=== PATIENT | female | born 1945 | race Caucasian/White ===

== ENCOUNTER 2016-11-20 15:04 | Inpatient (IN) | payer MEDICARE, OTHER ==
[~2016-11-20 15:04] MED LIST: ADULT LOW DOSE81 M1 PO; ATIVAN1 M2 PO; CALCIUM 600-VI1 EACH PO; CLARITIN10 M8 PO; COLACE100 M1 PO; COZAAR100 M1 PO; FISH OIL 1,0001 EAC6 PO; FLUPHENAZI IM; FUROSEMIDE20 M1 PO; GLUCOSAMINE HC500 M1 PO; GLUCOTROL XL10 M1 PO; KLOR-CON 1010 ME1 PO; LIPITOR40 M1 PO; LOVASTATIN40 M2 PO; NADOLOL20 M1 PO; NORCO 5-325 TA1 EACH PO; NORCO 7.5-3251 EACH PO; PROAIR HFA8.5 GM INH; SPIRIVA18 MC1 IH; SYMBICORT 160-1 PUFF INH; TYLENOL EXTRA500 M1 PO; VITAMIN D31000 UNI3 PO; ZANTAC 7575 M1 PO; ZOLOFT100 M1 PO
[2016-11-20 21:22] LABS: INR 1.2 INR (0.9-1.1); PROTHROMBIN TIME 13.7 SECONDS (9.0-13.6)
[2016-11-20 21:24] LABS: PARTIAL THROMBOPLASTIN TIME 29 SECONDS (22-38)
[2016-11-20 21:58] LABS: HCT-HEMATOCRIT 28.2 % (34.0-49.0); IMMATURE GRANULOCYTES ABSOLUTE 0.02 tho/cmm (0-0.03); IMMATURE GRANULOCYTES PERCENT 0.3 % (0-0.3); LYMPH ABSOLUTE COUNT 0.2 tho/cmm (0.8-4.5); MCH (MEAN CORPUSCULAR HGB) 29.3 pg (28.0-32.0); MCHC MEAN CORPUSCULAR HGB CONC 31.9 % (32.0-36.0); MCV (MEAN CELL VOLUME) 91.9 fl (82.0-96.0); MEAN PLATELET VOLUME 10.3 cmc (9.4-12.4); MONO % 1.8 % (0-12); MONOCYTE ABSOLUTE COUNT 0.1 tho/cmm (0.0-1.2); NEUTROPHIL ABSOLUTE COUNT 7.2 tho/cmm (1.6-8.0); NEUTROPHIL-AUTOMATED 7.2 tho/cmm (1.6-8.0); NEUTROPHILS % 94.9 % (40-80); PLATELET COUNT 164 tho/cmm (150-450); RED BLOOD COUNT 3.07 mil/cmm (4.00-5.20); WHITE BLOOD COUNT 7.6 tho/cmm (4.0-10.0)
[2016-11-20 22:11] LABS: ALB/GLOB RATIO 0.8 (0.8-2.0); ALBUMIN 2.7 g/dl (3.5-5.0); ALKALINE PHOSPHATASE 68 U/L (33-138); ALT/SGPT 285 U/L (12-78); ANION GAP 16 mmol/L (0-20); AST/SGOT 547 U/L (10-40); BLOOD UREA NITROGEN 24 mg/dl (6-24); CALCIUM 7.7 mg/dl (8.5-10.5); CARBON DIOXIDE-VENOUS 19 mmol/L (22-32); CHLORIDE 107 mmol/l (96-110); CHOLESTEROL 152 mg/dl (120-200); CREATININE 0.69 mg/dl (0.50-1.10); GLUCOSE 207 mg/dL (70-110); HDL CHOLESTEROL 42 mg/dl (40-60); LDL CHOLESTEROL 86 mg/dl (0-99); POTASSIUM 4.2 mmol/L (3.7-5.1); SODIUM 138 mmol/L (135-145); TRIGLYCERIDES 122 mg/dl (<149); VLDL 24 mg/dl (0-30); eGFR VALUE FOR BLACK >90 mL/Min
[2016-11-20 22:19] LABS: CKMB 17.2 ng/ml (<3.6)
[2016-11-20 22:24] LABS: CREATINE PHOSPHOKINASE (CPK) 1608 U/L (21-215)
[2016-11-20 22:50] LABS: ABG CO2 ARTERIAL 19 mmol/L (21-27); ARTERIAL BLD GAS O2 SATURATION 99 % (95-98); ARTERIAL BLOOD GAS PCO2 29 mmHg (32-45); ARTERIAL PO2 157 mmHg (70-100); BICARBONATE 19 mmol/L (21-28); BLOOD GAS BASE EXCESS -5 mM/L (-/+3); PH 7.42 Units (7.35-7.45)
[2016-11-21 00:41] LABS: URINE BILIRUBIN NEGATIVE (NEG); URINE BLOOD MODERATE (NEG); URINE GLUCOSE (UA) NEGATIVE (NEG); URINE KETONE NEGATIVE (NEG); URINE LEUKOCYTE ESTERASE NEGATIVE (NEG); URINE NITRITE NEGATIVE (NEG); URINE PROTEIN MODERATE (NEG)
[2016-11-21 00:45] LABS: URINE APPEARANCE HAZY; URINE COLOR YELLOW
[2016-11-21 00:52] LABS: URINE AMORPHOUS 2+; URINE MUCUS 1+
[2016-11-21 00:56] LABS: URINE EPITHELIAL CELLS 0-1 /[HPF] (0-10); URINE OTHER VOLUME 4 ML
[2016-11-21 04:19] LABS: HCT-HEMATOCRIT 26.9 % (34.0-49.0); HGB-HEMOGLOBIN 8.5 gm/dl (12.0-15.5); IMMATURE GRANULOCYTES ABSOLUTE 0.04 tho/cmm (0-0.03); IMMATURE GRANULOCYTES PERCENT 0.6 % (0-0.3); LYMPH % 5.6 % (20-45); LYMPH ABSOLUTE COUNT 0.4 tho/cmm (0.8-4.5); MCH (MEAN CORPUSCULAR HGB) 28.8 pg (28.0-32.0); MCHC MEAN CORPUSCULAR HGB CONC 31.6 % (32.0-36.0); MCV (MEAN CELL VOLUME) 91.2 fl (82.0-96.0); MEAN PLATELET VOLUME 10.5 cmc (9.4-12.4); MONOCYTE ABSOLUTE COUNT 0.2 tho/cmm (0.0-1.2); NEUTROPHIL ABSOLUTE COUNT 6.6 tho/cmm (1.6-8.0); NEUTROPHIL-AUTOMATED 6.6 tho/cmm (1.6-8.0); NEUTROPHILS % 90.8 % (40-80); PLATELET COUNT 172 tho/cmm (150-450); RED BLOOD COUNT 2.95 mil/cmm (4.00-5.20); RED CELL DISTRIBUTION WIDTH 15.2 % (12.4-16.4); WHITE BLOOD COUNT 7.3 tho/cmm (4.0-10.0)
[2016-11-21 04:31] LABS: ALB/GLOB RATIO 0.8 (0.8-2.0); ALBUMIN 2.6 g/dl (3.5-5.0); ALKALINE PHOSPHATASE 65 U/L (33-138); ALT/SGPT 300 U/L (12-78); ANION GAP 13 mmol/L (0-20); AST/SGOT 513 U/L (10-40); BILIRUBIN,TOTAL 0.9 mg/dl (0-1.5); BLOOD UREA NITROGEN 26 mg/dl (6-24); CALCIUM 7.7 mg/dl (8.5-10.5); CARBON DIOXIDE-VENOUS 21 mmol/L (22-32); CHLORIDE 108 mmol/l (96-110); CREATININE 0.68 mg/dl (0.50-1.10); GLUCOSE 135 mg/dL (70-110); MAGNESIUM 2.1 mg/dl (1.3-2.6); SODIUM 138 mmol/L (135-145); eGFR VALUE FOR BLACK >90 mL/Min
[2016-11-21 04:41] LABS: CKMB 12.6 ng/ml (<3.6)
[2016-11-21 04:47] LABS: CREATINE PHOSPHOKINASE (CPK) 1301 U/L (21-215)
[2016-11-21 04:53] LABS: ABG CO2 ARTERIAL 19 mmol/L (21-27); ARTERIAL BLD GAS O2 SATURATION 99 % (95-98); ARTERIAL BLOOD GAS PCO2 27 mmHg (32-45); ARTERIAL PO2 151 mmHg (70-100); BICARBONATE 18 mmol/L (21-28); BLOOD GAS BASE EXCESS -5 mM/L (-/+3); PH 7.45 Units (7.35-7.45)
[2016-11-21] MEDS ORDERED: AMBIEN5 M1 PO (11:56)
[2016-11-21 12:34] LABS: TSH-THYROID STIMULATING HORM. 3.53 uIU/ml (0.40-3.80)
[2016-11-21 20:05] LABS: CREATINE PHOSPHOKINASE (CPK) 812 U/L (21-215)
[2016-11-21 20:08] LABS: CKMB 7.1 ng/ml (<3.6)
[2016-11-22 04:40] LABS: BASO % 0.1 % (0-2); HCT-HEMATOCRIT 27.6 % (34.0-49.0); HGB-HEMOGLOBIN 8.8 gm/dl (12.0-15.5); IMMATURE GRANULOCYTES ABSOLUTE 0.02 tho/cmm (0-0.03); IMMATURE GRANULOCYTES PERCENT 0.2 % (0-0.3); LYMPH % 4.4 % (20-45); LYMPH ABSOLUTE COUNT 0.4 tho/cmm (0.8-4.5); MCHC MEAN CORPUSCULAR HGB CONC 31.9 % (32.0-36.0); MCV (MEAN CELL VOLUME) 91.1 fl (82.0-96.0); MEAN PLATELET VOLUME 10.6 cmc (9.4-12.4); MONO % 3.8 % (0-12); MONOCYTE ABSOLUTE COUNT 0.3 tho/cmm (0.0-1.2); NEUTROPHIL ABSOLUTE COUNT 7.5 tho/cmm (1.6-8.0); NEUTROPHIL-AUTOMATED 7.5 tho/cmm (1.6-8.0); NEUTROPHILS % 91.5 % (40-80); PLATELET COUNT 218 tho/cmm (150-450); RED BLOOD COUNT 3.03 mil/cmm (4.00-5.20); RED CELL DISTRIBUTION WIDTH 15.5 % (12.4-16.4); WHITE BLOOD COUNT 8.2 tho/cmm (4.0-10.0)
[2016-11-22 04:58] LABS: ANION GAP 15 mmol/L (0-20); BLOOD UREA NITROGEN 35 mg/dl (6-24); CALCIUM 7.9 mg/dl (8.5-10.5); CARBON DIOXIDE-VENOUS 20 mmol/L (22-32); CHLORIDE 109 mmol/l (96-110); CREATININE 0.84 mg/dl (0.50-1.10); GLUCOSE 179 mg/dL (70-110); POTASSIUM 3.5 mmol/L (3.7-5.1); SODIUM 140 mmol/L (135-145); eGFR VALUE FOR BLACK 82 mL/Min
[2016-11-22 05:33] LABS: ABG CO2 ARTERIAL 19 mmol/L (21-27); ARTERIAL BLD GAS O2 SATURATION 98 % (95-98); ARTERIAL BLOOD GAS PCO2 28 mmHg (32-45); BICARBONATE 18 mmol/L (21-28); BLOOD GAS BASE EXCESS -6 mM/L (-/+3); PH 7.42 Units (7.35-7.45)
[2016-11-22 05:34] LABS: ARTERIAL PO2 88 mmHg (70-100)
[2016-11-22 08:13] LABS: PROCALCITONIN 1.51 ng/ml (0.05-0.09)
[2016-11-23 05:12] LABS: BASO % 0.2 % (0-2); HCT-HEMATOCRIT 26.4 % (34.0-49.0); HGB-HEMOGLOBIN 8.5 gm/dl (12.0-15.5); IMMATURE GRANULOCYTES ABSOLUTE 0.06 tho/cmm (0-0.03); LYMPH % 7.7 % (20-45); LYMPH ABSOLUTE COUNT 0.5 tho/cmm (0.8-4.5); MCH (MEAN CORPUSCULAR HGB) 28.9 pg (28.0-32.0); MCHC MEAN CORPUSCULAR HGB CONC 32.2 % (32.0-36.0); MCV (MEAN CELL VOLUME) 89.8 fl (82.0-96.0); MEAN PLATELET VOLUME 10.2 cmc (9.4-12.4); MONO % 10.3 % (0-12); MONOCYTE ABSOLUTE COUNT 0.6 tho/cmm (0.0-1.2); NEUTROPHILS % 80.8 % (40-80); PLATELET COUNT 218 tho/cmm (150-450); RED BLOOD COUNT 2.94 mil/cmm (4.00-5.20); RED CELL DISTRIBUTION WIDTH 15.8 % (12.4-16.4); WHITE BLOOD COUNT 6.1 tho/cmm (4.0-10.0)
[2016-11-23 05:29] LABS: ABG CO2 ARTERIAL 19 mmol/L (21-27); ARTERIAL BLD GAS O2 SATURATION 94 % (95-98); ARTERIAL BLOOD GAS PCO2 28 mmHg (32-45); BICARBONATE 19 mmol/L (21-28); BLOOD GAS BASE EXCESS -5 mM/L (-/+3); PH 7.43 Units (7.35-7.45)
[2016-11-23 05:31] LABS: ARTERIAL PO2 67 mmHg (70-100)
[2016-11-23 06:50] LABS: PROCALCITONIN 0.59 ng/ml (0.05-0.09)
[2016-11-23 12:37] LABS: INR 1.2 INR (0.9-1.1); PROTHROMBIN TIME 14.3 SECONDS (9.0-13.6)
[2016-11-24 04:59] LABS: HCT-HEMATOCRIT 27.3 % (34.0-49.0); HGB-HEMOGLOBIN 8.7 gm/dl (12.0-15.5); MCHC MEAN CORPUSCULAR HGB CONC 31.9 % (32.0-36.0); MEAN PLATELET VOLUME 10.4 cmc (9.4-12.4); PLATELET COUNT 251 tho/cmm (150-450); RED CELL DISTRIBUTION WIDTH 16.1 % (12.4-16.4); WHITE BLOOD COUNT 7.9 tho/cmm (4.0-10.0)
[2016-11-24 05:04] LABS: ANION GAP 14 mmol/L (0-20); BLOOD UREA NITROGEN 44 mg/dl (6-24); CALCIUM 7.2 mg/dl (8.5-10.5); CARBON DIOXIDE-VENOUS 20 mmol/L (22-32); CHLORIDE 111 mmol/l (96-110); CREATININE 0.91 mg/dl (0.50-1.10); GLUCOSE 179 mg/dL (70-110); MAGNESIUM 1.9 mg/dl (1.3-2.6); SODIUM 142 mmol/L (135-145); eGFR VALUE FOR BLACK 74 mL/Min
[2016-11-24 05:17] LABS: BASO % 0.6 % (0-2); BASO ABSOLUTE COUNT 0.1 tho/cmm (0.0-0.2); IMMATURE GRANULOCYTES ABSOLUTE 0.44 tho/cmm (0-0.03); IMMATURE GRANULOCYTES PERCENT 5.6 % (0-0.3); LYMPH % 16.1 % (20-45); LYMPH ABSOLUTE COUNT 1.3 tho/cmm (0.8-4.5); MONO % 14.4 % (0-12); MONOCYTE ABSOLUTE COUNT 1.1 tho/cmm (0.0-1.2); NEUTROPHILS % 63.3 % (40-80)
[2016-11-24 06:17] LABS: ABG CO2 ARTERIAL 16 mmol/L (21-27); ARTERIAL BLD GAS O2 SATURATION 91 % (95-98); ARTERIAL BLOOD GAS PCO2 28 mmHg (32-45); ARTERIAL PO2 61 mmHg (70-100); BICARBONATE 17 mmol/L (21-28); BLOOD GAS BASE EXCESS -7 mM/L (-/+3); PH 7.39 Units (7.35-7.45)
[2016-11-24 06:30] LABS: PROCALCITONIN 0.37 ng/ml (0.05-0.09)
[2016-11-24 13:20] LABS: PROCALCITONIN 0.36 ng/ml (0.05-0.09)
[2016-11-25 05:11] LABS: ALB/GLOB RATIO 0.6 (0.8-2.0); ALBUMIN 2.2 g/dl (3.5-5.0); ALKALINE PHOSPHATASE 116 U/L (33-138); ALT/SGPT 156 U/L (12-78); ANION GAP 14 mmol/L (0-20); AST/SGOT 77 U/L (10-40); BILIRUBIN,TOTAL 0.8 mg/dl (0-1.5); BLOOD UREA NITROGEN 34 mg/dl (6-24); CALCIUM 7.3 mg/dl (8.5-10.5); CARBON DIOXIDE-VENOUS 21 mmol/L (22-32); CHLORIDE 111 mmol/l (96-110); CREATININE 0.77 mg/dl (0.50-1.10); POTASSIUM 3.5 mmol/L (3.7-5.1); SODIUM 142 mmol/L (135-145); eGFR VALUE FOR BLACK >90 mL/Min
[2016-11-25 05:12] LABS: HCT-HEMATOCRIT 27.2 % (34.0-49.0); HGB-HEMOGLOBIN 8.4 gm/dl (12.0-15.5); MCH (MEAN CORPUSCULAR HGB) 28.9 pg (28.0-32.0); MCHC MEAN CORPUSCULAR HGB CONC 30.9 % (32.0-36.0); MCV (MEAN CELL VOLUME) 93.5 fl (82.0-96.0); MEAN PLATELET VOLUME 10.5 cmc (9.4-12.4); NEUTROPHIL-AUTOMATED 10.4 tho/cmm (1.6-8.0); PLATELET COUNT 326 tho/cmm (150-450); RED BLOOD COUNT 2.91 mil/cmm (4.00-5.20); RED CELL DISTRIBUTION WIDTH 16.4 % (12.4-16.4)
[2016-11-25 05:16] LABS: BASO % 0.6 % (0-2); BASO ABSOLUTE COUNT 0.1 tho/cmm (0.0-0.2); IMMATURE GRANULOCYTES ABSOLUTE 0.78 tho/cmm (0-0.03); IMMATURE GRANULOCYTES PERCENT 5.9 % (0-0.3); LYMPH % 8.5 % (20-45); LYMPH ABSOLUTE COUNT 1.1 tho/cmm (0.8-4.5); MONO % 6.6 % (0-12); MONOCYTE ABSOLUTE COUNT 0.9 tho/cmm (0.0-1.2); NEUTROPHIL ABSOLUTE COUNT 10.4 tho/cmm (1.6-8.0); NEUTROPHILS % 78.4 % (40-80); WHITE BLOOD COUNT 13.2 tho/cmm (4.0-10.0)
[2016-11-25 05:41] LABS: GLUCOSE 270 mg/dL (70-110)
== END 2016-11-25 22:48 | disposition expired | DRG 64 ==
LOC: CCU 15:04
PROVIDERS: Internal Medicine; Internal Medicine Critical Care Medicine; Internal Medicine Medical Oncology; Internal Medicine Pulmonary Disease; ADMIT Internal Medicine Cardiovascular Disease
PROC: 0D9670Z Drainage of Stomach with Drainage Device, Via Natural or Artificial Opening (ICD-10-PCS; 2016-11-20)
PROC: 5A1955Z Respiratory Ventilation, Greater than 96 Consecutive Hours (ICD-10-PCS; principal; 2016-11-21)
PROC: 0BJ08ZZ Inspection of Tracheobronchial Tree, Via Natural or Artificial Opening Endoscopic (ICD-10-PCS; 2016-11-21)
PROC: 02HV33Z Insertion of Infusion Device into Superior Vena Cava, Percutaneous Approach (ICD-10-PCS; 2016-11-24)
DX: I63.443 Cerebral infarction due to embolism of bilateral cerebellar arteries (principal); I21.09 ST elevation (STEMI) myocardial infarction involving other coronary artery of anterior wall; J96.01 Acute respiratory failure with hypoxia; R57.0 Cardiogenic shock; J18.9 Pneumonia, unspecified organism; G93.40 Encephalopathy, unspecified; I50.21 Acute systolic (congestive) heart failure; I74.2 Embolism and thrombosis of arteries of the upper extremities; I11.0 Hypertensive heart disease with heart failure; I74.3 Embolism and thrombosis of arteries of the lower extremities; E46 Unspecified protein-calorie malnutrition; I50.32 Chronic diastolic (congestive) heart failure; I42.9 Cardiomyopathy, unspecified; I47.1 Supraventricular tachycardia; D62 Acute posthemorrhagic anemia; Z51.5 Encounter for palliative care; I25.10 Atherosclerotic heart disease of native coronary artery without angina pectoris; E11.9 Type 2 diabetes mellitus without complications; E78.5 Hyperlipidemia, unspecified; J44.9 Chronic obstructive pulmonary disease, unspecified; K21.9 Gastro-esophageal reflux disease without esophagitis; I71.2 Thoracic aortic aneurysm, without rupture; Z95.1 Presence of aortocoronary bypass graft; Z79.82 Long term (current) use of aspirin; Z79.02 Long term (current) use of antithrombotics/antiplatelets; Z96.651 Presence of right artificial knee joint; E66.9 Obesity, unspecified; Y95 Nosocomial condition; I27.2 Other secondary pulmonary hypertension; Z95.5 Presence of coronary angioplasty implant and graft; Z66 Do not resuscitate; Z68.34 Body mass index [BMI] 34.0-34.9, adult
CPT/HCPCS: A9577; C1751; C1758; C9113; J0282; J0360; J0692; J0696; J1100; J1250; J1265; J1644; J1815; J1940; J2060; J2185; J2250; J3010; J3370; J3480; J7030; J7040; J7050; L4396